=== PATIENT | female | born 1950 | race African-American/Black ===

== ENCOUNTER 2016-11-26 09:30 | Emergency (ER) | payer OTHER ==
[~2016-11-26] VITALS: Ht 175.3 cm; Wt 70.0 kg
[~2016-11-26 09:30] MED LIST: FEMA2.5T PO; LEXA20TA PO; PRIL20CA9 PO; VERA120T3 PO
[2016-11-26 09:32] VITALS: BP 140/64; PULSE 100; RESP 20; TEMP 98.5; O2SAT 100
--- NOTE | 2016-11-26 10:33 | PD ---
HPI Chief Complaint: Fall Time Seen by Provider: 10:04 Travel History International Travel<30 days: No Contact w/Intl Traveler<30days: No Traveled to known affect area: No History of Present Illness HPI Patient is a pleasant 66-year-old female here with complaint of fall. Patient had 4 glasses of wine yesterday had a mechanical fall, hitting her left temporal region. Patient was intoxicated at that time and is unsure whether she had an LOC or not. She however has not had any headache, nausea, vomiting in the interim. She did also hit the left groin region and notes a slight amount of pain there with hip flexion. No ecchymosis. Patient admits that she is an alcoholic. Is tearful, admitting that her 5 years ago and ever since she has been drinking heavily. 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 Admits she is been feeling the void of her with wine and drinks several glasses of wine every night. It is causing strain on her family relationships and her daughter is no longer speak to her. Patient admits that she is an alcoholic and has been going to a [employer] but has not been able to quit. She has not sought counseling for depression or grief reaction since losing her . PFSH Past Medical History Hx Anticoagulant Therapy: No Depression: Yes Cancer: Yes (BREAST) Cardiovascular Problems: Yes (HTN ) Chemotherapy: Yes Diabetes: No Diverticulitis: Yes Gastrointestinal Disorders: Yes (ABD PAIN,N'V) Glaucoma: No Genitourinary: Yes Hepatitis: No Hiatal Hernia: Yes Hypertension: Yes Immune Disorder: No Kidney Stones: Yes Musculoskeletal: No Neurologic: No Reproductive: No Respiratory: No Thyroid Disease: No ?: Not Menopausal: Yes : 2 Para: 2 Past Surgical History Abdominal Surgery: Yes (GASTRIC BYPASS WITH HIATAL HERNIA REPAIR, UMBILICAL HERNIA) Genitourinary Surgery: Yes (ESWL, LASER FOR KIDNEY STONES) Pacemaker: No Other Surgery: Yes (LEFT BREAST LUMPECTOMY) Social History Alcohol Use: Yes (daily- bottle of wine) Tobacco Use: No Substance Use: No Allergies-Medications (Allergen,Severity, Reaction): Coded Allergies: Penicillin (Verified Allergy, Severe, VOMITING AND DIARRHEA, 11/26/16) Sulfa (Verified Allergy, Severe, SEVERE SWELLING, 11/26/16) Erythromycin (Verified Allergy, Mild, 11/26/16) Morphine (Verified Adverse Reaction, Severe, nausea, 11/26/16) Uncoded Allergies: STUFFED MUSHROOMS (Allergy, Severe, Swelling, 06/30/10) Reported Meds & Prescriptions Reported Meds & Active Scripts Active Reported Prilosec (Omeprazole) 20 Mg Cap 20 Mg PO DAILY Verapamil (Verapamil HCl) 120 Mg Tab 120 Mg PO DAILY Femara (Letrozole) 2.5 Mg Tab 2.5 Mg PO DAILY Lexapro (Escitalopram Oxalate) 20 Mg Tab 20 Mg PO DAILY Review of Systems Except as stated in HPI: all other systems reviewed are Neg Physical Exam Narrative GENERAL: Well-appearing female in no acute distress SKIN: Focused skin assessment warm/dry. HEAD: Atraumatic. Normocephalic. EYES: Pupils equal and round. No scleral icterus. No injection or drainage. ENT: No nasal bleeding or discharge. Mucous membranes pink and moist. NECK: Supple CARDIOVASCULAR: Regular rate and rhythm. RESPIRATORY: No accessory muscle use. GASTROINTESTINAL: Abdomen soft, non-tender, nondistended. MUSCULOSKELETAL: No obvious deformities. No edema. Left groin without ecchymosis, swelling. Patient has minimal tenderness to palpation but is able to range the hip without any difficulty. Normal gait. NEUROLOGICAL: Awake and alert. No obvious cranial nerve deficits. Motor grossly within normal limits. Normal speech. PSYCHIATRIC: Blunted mood and affect, admits to feeling depressed and lonely particularly in the evenings. Denies any suicidal or homicidal ideation. Tearful when speaking about her late and her alcohol abuse. Data Data Last Documented VS Vital Signs Date Time Temp Pulse Resp B/P Pulse Ox O2 Delivery O2 Flow Rate FiO2 11/26/16 10:07 18 Room Air 11/26/16 09:32 98.5 100 140/[address] Brain W/O Iv Contrast(Rout) (11/26/16 ) MDM Medical Decision Making Medical Screen Exam Complete: Yes Emergency Medical Condition: Yes Medical Record Reviewed: Yes Differential Diagnosis 66-year-old female here with with fall with head injury with possible LOC yesterday evening while she was intoxicated. Differential includes closed head injury, intoxication and less likely skull fracture or ICH given her an intact neuro exam. Her underlying bigger issue is the fact that she by history has been depressed and quite lonely since her 5 years ago. She seems to be self-medicating with alcohol and has not sought any treatment for the underlying cause of her alcoholism. Narrative Course Had a very long conversation with patient and she actually has very good insight into her alcoholism and wants to get sober and mend her family relationships. She was given outpatient resources and I encouraged to have her follow up with primary for consideration of initiation of antidepressants. Head CT was obtained and negative. Diagnosis Primary Impression: Closed head injury Qualified Code: S09.90XA - Closed head injury, initial encounter Additional Impressions: Alcoholism Adjustment disorder Qualified Code: F43.21 - Adjustment disorder with depressed mood Referrals: Primary Care Physician as needed Additional Instructions: Follow up with outpatient resources as provided. Med/Other Pt SpecificInfo: No Change to Meds Disposition: 01 DISCHARGE HOME Condition: Stable Keli Anguiano MD Nov 26, 2016 10:33
--- NOTE | 2016-11-26 10:47 | RADRPT ---
EXAM DATE/TIME: 11/26/2016 10:25 [facility] COMPARISON: No previous studies available for comparison. INDICATIONS : Trauma; fall. RADIATION DOSE: 56.35 CTDIvol (mGy) IF STROKE ALERT - check box below MEDICAL HISTORY : Hypertension. Carcinoma, breast. SURGICAL HISTORY : None. ENCOUNTER: Initial ACUITY: 1 day PAIN SCALE: 3/10 LOCATION: cranial TECHNIQUE: Multiple contiguous axial images were obtained of the head. Using automated exposure control and adj ustment of the mA and/or kV according to patient size, radiation dose was kept as low as reasonably a chievable to obtain optimal diagnostic quality images. DICOM format image data is available electro nically for review and comparison. FINDINGS: CEREBRUM: The ventricles are normal for age. No evidence of midline shift, mass lesion, hemorrhage or acute in farction. No extra-axial fluid collections are seen. POSTERIOR FOSSA: The cerebellum and brainstem are intact. The 4th ventricle is midline. The cerebellopontine angle i s unremarkable. EXTRACRANIAL: The visualized portion of the orbits is intact. SKULL: The calvaria is intact. No evidence of skull fracture. CONCLUSION: Normal examination. Chandana Ford MD on November 26, 2016 at 10:43 Board Certified Radiologist. This report was verified electronically.
[2016-11-26] MEDS ORDERED: CANE/ALUMINUM/A1 MIS (10:54)
== END 2016-11-26 11:16 | disposition home or self-care (01) ==
LOC: NEPD 09:30
DX: S09.90XA Unspecified injury of head, initial encounter (principal); F10.20 Alcohol dependence, uncomplicated; F43.20 Adjustment disorder, unspecified; I10 Essential (primary) hypertension; W18.00XA Striking against unspecified object with subsequent fall, initial encounter; Z88.0 Allergy status to penicillin; Z88.2 Allergy status to sulfonamides; Z79.899 Other long term (current) drug therapy
CPT/HCPCS: 70450; 99284

== ENCOUNTER 2016-12-27 14:54 | Emergency (ER) | payer OTHER ==
[~2016-12-27] VITALS: Ht 180.3 cm; Wt 67.0 kg
[~2016-12-27 14:54] MED LIST changes: +CANE/ALUMINUM/A1 MIS
[2016-12-27 14:56] VITALS: BP 207/97; PULSE 72; RESP 18; TEMP 98.5; O2SAT 97
--- NOTE | 2016-12-27 15:12 | PD ---
Physical Exam Time Seen by Provider: 15:12 Narrative 66 y/o female with back pain which started a few weeks ago. It was improving but a few days ago she slid on a wet floor and fell, reinjuring her back. Vital signs reviewed. Seen at triage desk. Awaiting bed placement. Data Data Last Documented VS Vital Signs Date Time Temp Pulse Resp B/P Pulse Ox O2 Delivery O2 Flow Rate FiO2 12/27/16 14:56 98.5 72 18 207/97 97 Room Air [facility] Medical Record Reviewed: Yes Supervised Visit with OR: Philippe Bailey Dec 27, 2016 15:12
[2016-12-27 15:14] VITALS: BP 161/99; PULSE 79; RESP 16
[2016-12-27] MEDS ORDERED: METF850T PO (16:26)
[2016-12-27] MEDS ORDERED: ACETAMINOPHEN 325 MG TAB PO ONE (16:30)
[2016-12-27] MEDS ORDERED: METHOCARBAMOL 500 MG TAB PO ONE ×2 (16:30→19:00)
--- NOTE | 2016-12-27 16:30 | PD ---
HPI Chief Complaint: Back/ Neck Pain or Injury Time Seen by Provider: 16:29 Travel History International Travel<30 days: No Contact w/Intl Traveler<30days: No Traveled to known affect area: No History of Present Illness HPI 66-year-old female presents to the emergency Department with complaint of midline low back pain after slipping on a wet floor and falling on her buttocks on Saturday. She denies hitting her head or loss of consciousness. Denies encopresis, incontinence, saddle anesthesias. Denies paresthesias, loss of sensation, decreased range of motion, decreased strength to bilateral lower extremities. Denies fever, vomiting. Denies abdominal pain, dysuria, difficulty stooling, hematuria, hematochezia. Denies anticoagulants. Patient states she did go to work today and yesterday. Had a similar fall and injury about 3 weeks ago and did have a CT scan of her lumbar spine, which per the patient was normal but showed some arthritis. Her symptoms were improving and since have worsened since falling again. States she has been ambulatory with her cane. She's been taking Aleve and other [id number] medications for symptom management. Dr. Lin Colunga is primary care provider. Has no medical complaints. No other modifying factors or associated signs and symptoms. PFSH Past Medical History Hx Anticoagulant Therapy: No Depression: Yes Cancer: Yes (BREAST) Cardiovascular Problems: Yes (HTN ) Chemotherapy: Yes Diabetes: No Diminished Hearing: No Diverticulitis: Yes Gastrointestinal Disorders: Yes Glaucoma: No Genitourinary: Yes Hepatitis: No Hiatal Hernia: Yes Hypertension: Yes Immune Disorder: No Kidney Stones: Yes Musculoskeletal: No Neurologic: No Reproductive: No Respiratory: No Thyroid Disease: No Menopausal: Yes : 2 Para: 2 Past Surgical History Abdominal Surgery: Yes (GASTRIC BYPASS WITH HIATAL HERNIA REPAIR, UMBILICAL HERNIA) Genitourinary Surgery: Yes (ESWL, LASER FOR KIDNEY STONES) Pacemaker: No Other Surgery: Yes (LEFT BREAST LUMPECTOMY) Social History Alcohol Use: Yes (daily- bottle of wine) Tobacco Use: No Substance Use: No Allergies-Medications (Allergen,Severity, Reaction): Coded Allergies: Penicillin (Verified Allergy, Severe, VOMITING AND DIARRHEA, 12/27/16) Sulfa (Verified Allergy, Severe, SEVERE SWELLING, 12/27/16) Erythromycin (Verified Allergy, Mild, 12/27/16) Morphine (Verified Adverse Reaction, Severe, nausea, 12/27/16) Uncoded Allergies: STUFFED MUSHROOMS (Allergy, Severe, Swelling, 06/30/10) Reported Meds & Prescriptions Reported Meds & Active Scripts Active Naprosyn (Naproxen) 500 Mg Tab 500 Mg PO Q12HR PRN Lortab (Hydrocodone-Acetaminophen) 5-325 Mg Tab 1 Tab PO Q12HR PRN Reported Metformin (Metformin HCl) 850 Mg Tab 850 Mg PO DAILY With a meal Femara (Letrozole) 2.5 Mg Tab 2.5 Mg PO DAILY Lexapro (Escitalopram Oxalate) 20 Mg Tab 20 Mg PO DAILY Review of Systems Except as stated in HPI: all other systems reviewed are Neg Physical Exam Narrative GENERAL: Well-nourished, well-developed elderly, -Americans female patient, in no acute distress; afebrile, nontoxic-appearing SKIN: Warm and dry. HEAD: Atraumatic. Normocephalic. EYES: Pupils equal and round. No scleral icterus. No injection or drainage. ENT: Mucosa pink and moist. Airway patent. NECK: Trachea midline. Moving freely. Active rotation greater than 45 to the left and right. Tenderness on palpation to the bilateral musculature of the neck. CARDIOVASCULAR: Regular rate. RESPIRATORY: No accessory muscle use. GASTROINTESTINAL: Abdomen soft, non-tender, nondistended. Positive bowel sounds. No hepato-splenomegaly, or palpable masses. No guarding. MUSCULOSKELETAL: Bilateral lower extremities supple and non-tense with 2+ pedal pulses and sensory intact; with full range of motion and 5/5 strength. 2 + DTRs bilaterally. Active dorsiflexion and extension of bilateral feet. Bilateral straight leg raise is positive for low back pain. Sitting up in bed at 90. Patient ambulatory in room. No obvious deformities. No clubbing. No cyanosis. No edema. BACK: Midline point tenderness on palpation of the lumbar spine. No midline point tenderness on palpation of the thoracic or cervical spine. No obvious deformities. NEUROLOGICAL: Awake and alert. Oriented 3. No obvious cranial nerve deficits. Motor grossly within normal limits. Normal speech. Moves all extremities. 5/5 strength to all extremities. Sensory intact. PSYCHIATRIC: Appropriate mood and affect; insight and judgment normal. Data Data Last Documented VS Vital Signs Date Time Temp Pulse Resp B/P Pulse Ox O2 Delivery O2 Flow Rate FiO2 7/27/17 15:14 79 16 161/99 12/27/16 14:56 98[address] Lumb Spine W/O Contrast (12/27/16 ) Acetaminophen (Tylenol) (12/27/16 16:30) Methocarbamol (Robaxin) (12/27/16 16:30) Methocarbamol (Robaxin) (12/27/16 19:00) Splint Or Brace Apply/Monitor (12/27/16 19:45) Brace Lso-Orthosis (12/27/16 ) Brace Thoracic Ext (12/27/16 ) MDM Medical Decision Making Medical Screen Exam Complete: Yes Emergency Medical Condition: Yes Medical Record Reviewed: Yes Differential Diagnosis Fall, Lumbar fracture, low back injury, low back strain Narrative Course 66-year-old female with exacerbation of low back pain after a mechanical slip and fall on Saturday. Denies hitting her head or loss of consciousness. Patient says she had a similar fall and injury about 3 weeks ago and had a CT of her lumbar spine done outpatient, which per the patient showed no acute findings. Patient has midline point tenderness on palpation of the lumbar spine. CT lumbar spine ordered. Tylenol and Robaxin ordered. 1899: Report given at change of shift to Michael Cuevas PA-C. See his note for final patient disposition. Scripts Naproxen (Naprosyn)500 Mg [id number] Mg PO Q12HR PRN (PAIN SCALE 1 TO 10) #12 TAB Ref 0 Prov:Jason Malave MD 12/27/16 Hydrocodone-Acetaminophen (Lortab)5-325 Mg Tab1 Tab PO Q12HR PRN (PAIN GREATER THAN 7) #6 TAB Ref 0 Prov:Jason Malave MD 12/27/16 Sveta Chisholm Dec 27, 2016 16:30 Sveta Chisholm Dec 27, 2016 16:30
--- NOTE | 2016-12-27 19:35 | RADRPT ---
EXAM DATE/TIME: 12/27/2016 19:03 [facility] COMPARISON: No previous studies available for comparison. INDICATIONS : Trauma, slip and fall. RADIATION DOSE: 35.86 CTDIvol (mGy) MEDICAL HISTORY : Hypertension. Carcinoma, breast. SURGICAL HISTORY : None. ENCOUNTER: Initial ACUITY: 1 day PAIN SCALE: 10/10 LOCATION: Paraspinal TECHNIQUE: Volumetric scanning of the lumbar spine was performed. Multiplanar reconstructions in the sagittal, coronal and oblique axial planes were performed. Using automated exposure control and adjustment of the mA and/or kV according to patient size, radiation dose was kept as low as reasonably achievable t o obtain optimal diagnostic quality images. DICOM format image data is available electronically for review and comparison. FINDINGS: There is a moderate to severe compression deformity of L2 without significant retropulsion. The bones are diffusely osteopenic. There is a mild grade 1 anterolisthesis of L4 on L5. At L4-5 there is a mi ld central canal stenosis with a broad based mild protrusion. No other significant canal stenosis. CONCLUSION: 1. Moderate to severe severe compression deformity of L2 without significant retropulsion. Diffuse os teopenia. Mild canal stenosis at L4-5 associated with a grade 1 anterolisthesis and mild disc protrus ion. Kelvin Gottlieb MD on December 27, 2016 at 19:28 Board Certified Radiologist. This report was verified electronically.
--- NOTE | 2016-12-27 19:45 | PD ---
Physical Exam Narrative Patient signed out to me from Sveta DELACRUZ. Pending CT scan. Please see her documentation for full H&P. Data Data Last Documented VS Vital Signs Date Time Temp Pulse Resp B/P Pulse Ox O2 Delivery O2 Flow Rate FiO2 12/27/16 15:14 79 16 161/99 12/27/16 14:56 98[address] Lumb Spine W/O Contrast (12/27/16 ) Acetaminophen (Tylenol) (12/27/16 16:30) Methocarbamol (Robaxin) (12/27/16 16:30) Methocarbamol (Robaxin) (12/27/16 19:00) Splint Or Brace Apply/Monitor (12/27/16 19:45) Brace Lso-Orthosis (12/27/16 ) Brace Thoracic Ext (12/27/16 ) MDM Supervised Visit with RO: No Interpretation(s) CT lumbar spine read by the radiologist shows: Moderate to severe severe compression deformity of L2 without significant retropulsion. Diffuse osteopenia. Mild canal stenosis at L4-5 associated with a grade 1 anterolisthesis and mild disc protrusion. Narrative Course The patient presented complaining of back pain. There was history of preceding trauma. Evaluation included a CT scan that showed a moderate severe compression deformity of L2. TThe patients neurological exam is normal with normal motor and sensory. There is no saddle paresthesias reported and no bowel or bladder incontinence or retention. Clinical diagnosis, plan of care and management was discussed with the patient. The patient was instructed to follow up with their orthopedic doctor and/or neurosurgeon. The patient was also instructed to return if the pain worsened, changed, or developed weakness or bowel or bladder trouble. The patient agreed with plan. There was no evidence to support genitourinary etiology as well. There is also no evidence to suggest vascular pathology such as AAA dissection. No fevers or other evidence to suspect infectious processes, abscess etc. Patient in no obvious distress upon re-evaluation. All pertinent Radiology result(s) discussed with patient. Patient was asked if they wanted to speak to my attending, which the patient did not wish to do at this time. Any questions/ concerns in reference to patient diagnosis/condition discussed and clarified prior to patient's discharge. Reinforced sheer importance of close follow up with patient's orthopedic and/or neurosurgeon. Instructed patient to return to ED immediately, if symptoms return/worsen. Pt showed understanding of above instructions. Further instructions and recommendations were detailed in discharge paperwork. Pt ambulated without difficulty out of ED at discharge. Diagnosis Primary Impression: Compression fracture of lumbar vertebra Qualified Code: S32.000A - Compression fracture of lumbar vertebra, closed, initial encounter Referrals: Irineo Soares MD Neurosurgeon Patient Instructions: Clamshell Brace (ED), General Instructions, Lumbar Brace (GEN), Vertebral Compression Fracture (ED) Departure Forms: Work Release Enter return to work date: Dec 30, 2016 Additional Instruction: Follow-up with your orthopedic and/or neurosurgeon in 1-4 days for evaluation. Take all medication as prescribed. Wear brace as instructed while ambulatory until instructed by your orthopedic or neurosurgeon. Return to the emergency department if symptoms get worse. Scripts Naproxen (Naprosyn)500 Mg [id number] Mg PO Q12HR PRN (PAIN SCALE 1 TO 10) #12 TAB Ref 0 Prov:Jason Malave MD 12/27/16 Hydrocodone-Acetaminophen (Lortab)5-325 Mg Tab1 Tab PO Q12HR PRN (PAIN GREATER THAN 7) #6 TAB Ref 0 Prov:Jason Malave MD 12/27/16 Disposition: 01 DISCHARGE HOME Condition: Stable Norm Cuevas Dec 27, 2016 19:45
[2016-12-27] MEDS ORDERED: NAPR500 PO ×2 (19:52→19:53)
[2016-12-27] MEDS ORDERED: HYDR-3533 PO ×2 (19:52→19:53)
== END 2016-12-27 20:21 | disposition home or self-care (01) ==
LOC: NEPK 14:54
DX: S32.000A Wedge compression fracture of unspecified lumbar vertebra, initial encounter for closed fracture (principal); I10 Essential (primary) hypertension; F32.9 Major depressive disorder, single episode, unspecified; W01.0XXA Fall on same level from slipping, tripping and stumbling without subsequent striking against object, initial encounter; Z85.3 Personal history of malignant neoplasm of breast; Z79.899 Other long term (current) drug therapy; Z88.0 Allergy status to penicillin; Z88.2 Allergy status to sulfonamides; Z88.5 Allergy status to narcotic agent
CPT/HCPCS: 72131; 99284; L0200; L0484

== ENCOUNTER 2016-12-30 11:40 | Emergency (ER) | payer OTHER ==
[~2016-12-30 11:40] MED LIST changes: -CANE/ALUMINUM/A1 MIS; +HYDR-3533 PO; +METF850T PO; +NAPR500 PO; -PRIL20CA9 PO; -VERA120T3 PO
[2016-12-30 11:41] VITALS: BP 135/69; PULSE 80; RESP 20; TEMP 98.1; O2SAT 98
[2016-12-30] MEDS ORDERED: PERC5TAB12 PO (12:28)
--- NOTE | 2016-12-30 12:31 | PD ---
HPI Chief Complaint: Medical Clearance Time Seen by Provider: 12:15 Travel History International Travel<30 days: No Contact w/Intl Traveler<30days: No Traveled to known affect area: No History of Present Illness HPI 66-year-old female who sustained a mechanical fall resulting in L2 compression fracture without significant retropulsion on 12/27/16 presents to the emergency department today for clarification on how to wear her back brace. She also reports that her current pain medication is not working. She reports continued low back pain which is constant, worse with movement, slightly relieved with rest. Not endorse worsening pain. She denies incontinence, saddle anesthesia, numbness/weakness/tingling in the extremities. PFSH Past Medical History Hx Anticoagulant Therapy: No Depression: Yes Cancer: Yes (BREAST) Cardiovascular Problems: Yes (HTN ) Chemotherapy: Yes Diabetes: No Diminished Hearing: No Diverticulitis: Yes Gastrointestinal Disorders: Yes Glaucoma: No Genitourinary: Yes Hepatitis: No Hiatal Hernia: Yes Hypertension: Yes Immune Disorder: No Kidney Stones: Yes Musculoskeletal: No Neurologic: No Reproductive: No Respiratory: No Thyroid Disease: No Influenza Vaccination: Yes ?: Not Menopausal: Yes : 2 Para: 2 Past Surgical History Abdominal Surgery: Yes (GASTRIC BYPASS WITH HIATAL HERNIA REPAIR, UMBILICAL HERNIA) Genitourinary Surgery: Yes (ESWL, LASER FOR KIDNEY STONES) Pacemaker: No Other Surgery: Yes (LEFT BREAST LUMPECTOMY) Social History Alcohol Use: Yes (daily- bottle of wine) Tobacco Use: No Substance Use: No Allergies-Medications (Allergen,Severity, Reaction): Coded Allergies: Penicillin (Verified Allergy, Severe, VOMITING AND DIARRHEA, 12/30/16) Sulfa (Verified Allergy, Severe, SEVERE SWELLING, 12/30/16) Erythromycin (Verified Allergy, Mild, 12/30/16) Morphine (Verified Adverse Reaction, Severe, nausea, 12/30/16) Uncoded Allergies: STUFFED MUSHROOMS (Allergy, Severe, Swelling, 06/30/10) Reported Meds & Prescriptions Reported Meds & Active Scripts Active Naprosyn (Naproxen) 500 Mg Tab 500 Mg PO Q12HR PRN Lortab (Hydrocodone-Acetaminophen) 5-325 Mg Tab 1 Tab PO Q12HR PRN Reported Femara (Letrozole) 2.5 Mg Tab 2.5 Mg PO DAILY Lexapro (Escitalopram Oxalate) 20 Mg Tab 20 Mg PO DAILY Review of Systems Except as stated in HPI: all other systems reviewed are Neg General / Constitutional: No: Fever Eyes: No: Visual changes Cardiovascular: No: Chest Pain or Discomfort Respiratory: No: Shortness of Breath Gastrointestinal: No: Abdominal Pain Genitourinary: No: Dysuria Musculoskeletal: Positive: Pain (low back pain) Neurologic: No: Weakness Physical Exam Narrative GENERAL: Alert, well-appearing female in no acute distress. She appears mildly uncomfortable with moving. SKIN: Focused skin assessment warm/dry. HEAD: Atraumatic. Normocephalic. EYES: Pupils equal and round. No scleral icterus. No injection or drainage. ENT: No nasal bleeding or discharge. Mucous membranes pink and moist. NECK: Trachea midline. No JVD. CARDIOVASCULAR: Regular rate and rhythm. No murmur appreciated. RESPIRATORY: No accessory muscle use. Clear to auscultation. Breath sounds equal bilaterally. GASTROINTESTINAL: Abdomen soft, non-tender, nondistended. Hepatic and splenic margins not palpable. MUSCULOSKELETAL: No obvious deformities. No clubbing. No cyanosis. No edema. BACK: No CVA tenderness. No rash. Tender to palpation of the lumbar spine. NEUROLOGICAL: Awake and alert. No obvious cranial nerve deficits. Motor grossly within normal limits. Normal speech. 5 out of 5 strength in lower extremities. Normal sensation. PSYCHIATRIC: Appropriate mood and affect; insight and judgment normal. Data Data Last Documented VS Vital Signs Date Time Temp Pulse Resp B/P Pulse Ox O2 Delivery O2 Flow Rate FiO2 12/30/16 11:41 98.1 80 20 135/69 98 Room Air MDM Medical Decision Making Medical Screen Exam Complete: Yes Emergency Medical Condition: Yes Differential Diagnosis L2 compression fracture, spinal stenosis, intractable pain, other Narrative Course 66-year-old female presents emergency department for repeat education on how to properly where her back brace for her L2 compression fracture she sustained on 2716. Her physical exam is reassuring. She has a normal neurologic exam. She has point tenderness in the lumbar spine. She reports the hydrocodone is not improving her pain. Diagnosis Primary Impression: Compression fracture of lumbar vertebra Qualified Code: S32.000A - Compression fracture of lumbar vertebra, closed, initial encounter Referrals: Primary Care Physician Additional Instructions: Take the pain medication as prescribed. Where the back brace as instructed. Follow up with your primary care doctor. Return to emergency department if he developed new or worsening symptoms. Scripts Oxycodone-Acetaminophen (Percocet)5-325 mg Tab1 Tab PO Q6H PRN (PAIN) #15 TAB Ref 0 Prov:Lakeshia Mabry 12/30/16 Disposition: 01 DISCHARGE HOME Condition: Stable Lakeshia Mabry Dec 30, 2016 12:31
== END 2016-12-30 13:20 | disposition home or self-care (01) ==
LOC: NEPD 11:40
DX: S32.020A Wedge compression fracture of second lumbar vertebra, initial encounter for closed fracture (principal); W19.XXXA Unspecified fall, initial encounter
CPT/HCPCS: 99283

== ENCOUNTER 2017-03-15 09:32 | Emergency (ER) | payer OTHER ==
[~2017-03-15] VITALS: Ht 177.8 cm; Wt 65.0 kg
[~2017-03-15 09:32] MED LIST changes: -METF850T PO; +PERC5TAB12 PO
[2017-03-15 09:34] VITALS: BP 132/76; PULSE 88; RESP 12; TEMP 98.2; O2SAT 100
[2017-03-15] MEDS ORDERED: NAPROXEN 500 MG TAB PO ONE (10:00)
--- NOTE | 2017-03-15 10:05 | PD ---
HPI Chief Complaint: Injury Time Seen by Provider: 09:57 Travel History International Travel<30 days: No Contact w/Intl Traveler<30days: No Traveled to known affect area: No History of Present Illness HPI 67-year-old female presents to the emergency department complaining of left shoulder pain after a fall today. She is [employer] employee and she was saying hello to a friend and pushed the button to the elevator and fell. Reports falling 2 weeks ago also. She says she can feel herself falling but doesn't know why she is falling. Denies syncope. Denies hitting her head or loss of consciousness. Denies neck pain or back pain. Denies anticoagulant therapy. Denies chest pain, shortness of breath, abdominal pain, vomiting. Denies lightheadedness, dizziness, headache. Denies focal deficits or weakness. Describes shoulder pain as an ache. Has not taken any medications or tried any treatments to relieve her symptoms. Pain is mild in severity. Says she recently stopped taking her blood pressure medication because it was making her feel nauseated. Multiple allergies as listed on the chart. Has no other medical complaints. No other modifying factors or associated signs and symptoms. PFSH Past Medical History Hx Anticoagulant Therapy: No Depression: Yes Cancer: Yes (BREAST) Cardiovascular Problems: Yes (HTN ) Chemotherapy: Yes Diabetes: No Diminished Hearing: No Diverticulitis: Yes Gastrointestinal Disorders: Yes Glaucoma: No Genitourinary: Yes Hepatitis: No Hiatal Hernia: Yes Hypertension: Yes Immune Disorder: No Kidney Stones: Yes Musculoskeletal: No Neurologic: No Reproductive: No Respiratory: No Thyroid Disease: No ?: Not Menopausal: Yes : 2 Para: 2 Past Surgical History Abdominal Surgery: Yes (GASTRIC BYPASS WITH HIATAL HERNIA REPAIR, UMBILICAL HERNIA) Genitourinary Surgery: Yes (ESWL, LASER FOR KIDNEY STONES) Pacemaker: No Other Surgery: Yes (LEFT BREAST LUMPECTOMY) Social History Alcohol Use: Yes (daily- bottle of wine) Tobacco Use: No Substance Use: No Allergies-Medications (Allergen,Severity, Reaction): Coded Allergies: Sulfa (Sulfonamide Antibiotics) (Unverified Allergy, Severe, SEVERE SWELLING, 01/15/17) penicillin G (Unverified Allergy, Severe, VOMITING AND DIARRHEA, 01/15/17) erythromycin base (Unverified Allergy, Mild, 01/15/17) morphine (Unverified Adverse Reaction, Severe, nausea, 01/15/17) Uncoded Allergies: STUFFED MUSHROOMS (Allergy, Severe, Swelling, 06/30/10) Reported Meds & Prescriptions Reported Meds & Active Scripts Active Percocet (Oxycodone-Acetaminophen) 5-325 mg Tab 1 Tab PO Q6H PRN Naprosyn (Naproxen) 500 Mg Tab 500 Mg PO Q12HR PRN Lortab (Hydrocodone-Acetaminophen) 5-325 Mg Tab 1 Tab PO Q12HR PRN Reported Femara (Letrozole) 2.5 Mg Tab 2.5 Mg PO DAILY Lexapro (Escitalopram Oxalate) 20 Mg Tab 20 Mg PO DAILY Review of Systems Except as stated in HPI: all other systems reviewed are Neg Physical Exam Narrative GENERAL: Well-nourished, well-developed elderly, black female patient, in no acute distress SKIN: Warm and dry. HEAD: Atraumatic. Normocephalic. EYES: Pupils equal and round. No scleral icterus. No injection or drainage. ENT: Mucosa pink and moist. Airway patent. NECK: Supple. Trachea midline. CARDIOVASCULAR: Regular rate and rhythm. No murmur appreciated. RESPIRATORY: No accessory muscle use. Clear to auscultation. Breath sounds equal bilaterally. GASTROINTESTINAL: Flat. MUSCULOSKELETAL: Left shoulder with full range of motion and greater than 45 abduction; no obvious deformity; shoulders equal; joint stable. No obvious deformities. No clubbing. No cyanosis. No edema. NEUROLOGICAL: Awake and alert. Oriented 3. No obvious cranial nerve deficits. Motor grossly within normal limits. Normal speech. PSYCHIATRIC: Appropriate mood and affect; insight and judgment normal. Data Data Last Documented VS Vital Signs Date Time Temp Pulse Resp B/P (MAP) Pulse Ox O2 Delivery O2 Flow Rate FiO2 03/15/17 09:34 98.2 88 12 132/76 (94) 100 Orders Orders Electrocardiogram (03/15/17 09:51) Basic Metabolic Panel (Bmp) (03/15/17 09:51) Complete Blood Count With Diff (03/15/17 09:51) Shoulder, Complete (>2vws) (03/15/17 09:51) Naproxen (Naprosyn) (03/15/17 10:00) [facility] Medical Decision Making Medical Screen Exam Complete: Yes Emergency Medical Condition: Yes Medical Record Reviewed: Yes Differential Diagnosis Fall, near syncope, shoulder injury, electrolyte imbalance, cardiac arrhythmia Narrative Course 67-year-old female with left shoulder injury after fall. Patient had a fall 2 weeks ago. She does not know why she is falling. Denies syncope. Patient denies hitting her head or loss of consciousness. Denies neck pain or back pain. Denies anticoagulant therapy. CBC, BMP, EKG, left shoulder x-ray ordered. 0955: Patient moved medical bed for further treatment and evaluation. Report given to Dr. Benavides. See his note for patient final disposition. Sveta Chisholm Mar 15, 2017 10:05
--- NOTE | 2017-03-15 10:31 | RADRPT ---
EXAM DATE/TIME: 03/15/2017 10:21 [facility] COMPARISON: No previous studies available for comparison. INDICATIONS : Fell on left shoulder pain with motion over AC joint radiating into left scapula. MEDICAL HISTORY : None. SURGICAL HISTORY : None. ENCOUNTER: Initial ACUITY: 1 day PAIN SCORE: 9/10 LOCATION: Left shoulder FINDINGS: Degenerative changes of evident with chronic rotator cuff tear. There is no fracture. CONCLUSION: Chronic rotator cuff tear, negative for fracture. Fransisco Goldsmith MD FACR on March 15, 2017 at 10:29 Board Certified Radiologist. This report was verified electronically.
[2017-03-15] MEDS ORDERED: OMEP40CA2 PO (10:35)
[2017-03-15 10:44] LABS: BASOPHIL # 0.1 TH/MM3 (0-0.2); BASOPHIL % 1.6 % (0.0-2.0); EOSINOPHIL # 0.2 TH/MM3 (0-0.4); EOSINOPHIL % 5.8 % (0.0-4.0); HEMATOCRIT 32.4 % (35.0-46.0); HEMO FLAGS DIFF FINAL; LYMPH % 29.1 % (9.0-44.0); LYMPHOCYTE # 1.1 TH/MM3 (1.0-4.8); MEAN CELL VOLUME 101.2 FL (80.0-100.0); MEAN CORPUSCULAR HEMOGLOBIN 33.4 PG (27.0-34.0); MEAN CORPUSCULAR HGB CONC 33.1 % (32.0-36.0); NEUT % 53.5 % (16.0-70.0); PLATELET COUNT 276 TH/MM3 (150-450); RED CELL DISTRIBUTION WIDTH 13.7 % (11.6-17.2); WHITE BLOOD COUNT 3.7 TH/MM3 (4.0-11.0)
[2017-03-15 11:06] LABS: BICARBONATE 21.7 MEQ/L (21.0-32.0); POTASSIUM 3.9 MEQ/L (3.5-5.1)
--- NOTE | 2017-03-15 11:52 | PD ---
Data Data Last Documented VS Vital Signs Date Time Temp Pulse Resp B/P (MAP) Pulse Ox O2 Delivery O2 Flow Rate FiO2 03/15/17 10:14 Room Air 03/15/17 09:34 98.2 88 12 132/76 (94) 100 Orders Orders Electrocardiogram (03/15/17 09:51) Basic Metabolic Panel (Bmp) (03/15/17 09:51) Complete Blood Count With Diff (03/15/17 09:51) Shoulder, Complete (>2vws) (03/15/17 09:51) Naproxen (Naprosyn) (03/15/17 10:00) Labs Laboratory Tests Test 03/15/17 10:25 White Blood Count 3.7 TH/MM3 Red Blood Count 3.20 MIL/MM3 Hemoglobin 10.7 GM/DL Hematocrit 32.4 % Mean Corpuscular Volume 101.2 FL Mean Corpuscular Hemoglobin 33.4 PG Mean Corpuscular Hemoglobin Concent 33.1 % Red Cell Distribution Width 13.7 % Platelet Count 276 TH/MM3 Mean Platelet Volume 6.6 FL Neutrophils (%) (Auto) 53.5 % Lymphocytes (%) (Auto) 29.1 % Monocytes (%) (Auto) 10.0 % Eosinophils (%) (Auto) 5.8 % Basophils (%) (Auto) 1.6 % Neutrophils # (Auto) 2.0 TH/MM3 Lymphocytes # (Auto) 1.1 TH/MM3 Monocytes # (Auto) 0.4 TH/MM3 Eosinophils # (Auto) 0.2 TH/MM3 Basophils # (Auto) 0.1 TH/MM3 CBC Comment DIFF FINAL Differential Comment Blood Urea Nitrogen 12 MG/DL Creatinine 0.72 MG/DL Random Glucose 59 MG/DL Calcium Level 8.8 MG/DL Sodium Level 135 MEQ/L Potassium Level 3.9 MEQ/L Chloride Level 104 MEQ/L Carbon Dioxide Level 21.7 MEQ/L Anion Gap 9 MEQ/L Estimat Glomerular Filtration Rate 97 ML/MIN [facility] Supervised Visit with RO: Yes Narrative Course Patient with unexplained fall today at work. Landed On her left shoulder. Labs are unremarkable, x-rays negative, EKG is unremarkable. Medical decision making: Patient likely needs follow-up for these to fall episodes that she's had. She describes a little bit of unsteadiness generally. She looks well now. No evidence of injury from fall. She otherwise is well. Safe for discharge. Diagnosis Primary Impression: Unsteady gait Additional Instruction: Follow-up with your primary doctor regarding her unsteady gait. Return to the emergency department for any new or worsening symptoms. Med/Other Pt SpecificInfo: No Change to Meds Disposition: 01 DISCHARGE HOME Condition: Stable Charlie Benavides MD Mar 15, 2017 11:52
[2017-03-15 12:02] VITALS: BP 129/77
--- NOTE | 2017-03-15 14:13 | EKG ---
Date Performed: 03/15/2017 Time Performed: 10:29:30 PTAGE: 67 years EKG: Sinus rhythm NORMAL ECG PREVIOUS TRACING : 06/30/2010 08.05 No change from previous tracing noted DOCTOR: Carlos Dillon Interpretating Date/Time 03/15/2017 14:12:12
== END 2017-03-15 12:04 | disposition home or self-care (01) ==
LOC: NEPD 09:32
DX: R26.81 Unsteadiness on feet (principal); M25.512 Pain in left shoulder; F32.9 Major depressive disorder, single episode, unspecified; I10 Essential (primary) hypertension; Z88.0 Allergy status to penicillin; Z88.2 Allergy status to sulfonamides; Z88.5 Allergy status to narcotic agent; Z79.899 Other long term (current) drug therapy; W18.30XA Fall on same level, unspecified, initial encounter; Z91.81 History of falling; Z85.3 Personal history of malignant neoplasm of breast; Z87.442 Personal history of urinary calculi
CPT/HCPCS: 73030; 80048; 85025; 93005

== ENCOUNTER 2017-03-21 13:08 | Emergency (ER) | payer OTHER ==
[~2017-03-21] VITALS: Ht 180.3 cm; Wt 65.0 kg
[~2017-03-21 13:08] MED LIST changes: -HYDR-3533 PO; -NAPR500 PO; +OMEP40CA2 PO; -PERC5TAB12 PO
[2017-03-21 13:12] VITALS: BP 171/84; PULSE 97; RESP 18; TEMP 98.4; O2SAT 100
[2017-03-21 14:30] VITALS: BP 137/84; PULSE 86; RESP 15; O2SAT 100
--- NOTE | 2017-03-21 14:42 | PD ---
HPI Chief Complaint: Fall Time Seen by Provider: 14:13 Travel History International Travel<30 days: No Contact w/Intl Traveler<30days: No Traveled to known affect area: No History of Present Illness HPI 67-year-old female presents to the emergency department for evaluation after a trip and fall. Patient was just seen here recently for unsteady gait, falls. Lab work was completed and she was instructed to follow up with her primary care physician. She has done this and has order for MRI of the brain. She states that today, she was hurrying with food in her hands. She is wearing new sneakers which tripped her up and she fell hitting her head. Says insist she tripped and fell. She denies LOC, but complains of headache. She denies any neck pain or back pain. No chest pain or abdominal pain. She also complains of right facial pain. She denies any hip or pelvic pain. No nausea, vomiting, diarrhea. Patient is not currently on anticoagulants. Patient denies any other complaints at this time. PFSH Past Medical History Hx Anticoagulant Therapy: No Depression: Yes Cancer: Yes (BREAST) Cardiovascular Problems: Yes (HTN ) Chemotherapy: Yes Diabetes: No Diminished Hearing: No Diverticulitis: Yes Gastrointestinal Disorders: Yes Glaucoma: No Genitourinary: Yes Hepatitis: No Hiatal Hernia: Yes Hypertension: Yes Immune Disorder: No Kidney Stones: Yes Musculoskeletal: No Neurologic: No Reproductive: No Respiratory: No Thyroid Disease: No Tetanus Vaccination: Unknown Influenza Vaccination: Yes ?: Not Menopausal: Yes : 2 Para: 2 Past Surgical History Abdominal Surgery: Yes (GASTRIC BYPASS WITH HIATAL HERNIA REPAIR, UMBILICAL HERNIA) Genitourinary Surgery: Yes (ESWL, LASER FOR KIDNEY STONES) Pacemaker: No Other Surgery: Yes (LEFT BREAST LUMPECTOMY) Social History Alcohol Use: Yes (daily- bottle of wine) Tobacco Use: No Substance Use: No Allergies-Medications (Allergen,Severity, Reaction): Coded Allergies: Sulfa (Sulfonamide Antibiotics) (Verified Allergy, Severe, SEVERE SWELLING , 03/21/17) penicillin G (Verified Allergy, Severe, VOMITING AND DIARRHEA, 03/21/17) erythromycin base (Verified Allergy, Mild, 03/21/17) morphine (Verified Adverse Reaction, Severe, nausea, 03/21/17) Uncoded Allergies: STUFFED MUSHROOMS (Allergy, Severe, Swelling, 06/30/10) Reported Meds & Prescriptions Reported Meds & Active Scripts Active Reported Omeprazole 40 Mg Cap 40 Mg PO DAILY Femara (Letrozole) 2.5 Mg Tab 2.5 Mg PO DAILY Lexapro (Escitalopram Oxalate) 20 Mg Tab 20 Mg PO DAILY Review of Systems Except as stated in HPI: all other systems reviewed are Neg Physical Exam Narrative GENERAL: Well-nourished, well-developed female patient, afebrile. SKIN: Focused skin assessment warm/dry. No lacerations or abrasions. HEAD: Normocephalic. Atraumatic. Patient has tenderness over right cheek, eye orbit. EYES: No scleral icterus. No injection or drainage. PERRLA. EOM intact. NECK: Supple, trachea midline. No JVD or lymphadenopathy. CARDIOVASCULAR: Regular rate and rhythm without murmurs, gallops, or rubs. RESPIRATORY: Breath sounds equal bilaterally. No accessory muscle use. Lungs sounds are clear to auscultation. GASTROINTESTINAL: Abdomen soft, non-tender, nondistended. MUSCULOSKELETAL: No cyanosis, or edema. Bilateral upper and lower extremity strength 5/5. All extremities are neurovascularly intact. BACK: Nontender without obvious deformity. No CVA tenderness. Data Data Last Documented VS Vital Signs Date Time Temp Pulse Resp B/P (MAP) Pulse Ox O2 Delivery O2 Flow Rate FiO2 03/21/17 14:30 16 100 Room Air 03/21/17 14:30 86 137/84 (101) 03/21/17 13:[address] Brain W/O Iv Contrast(Rout) (03/21/17 ) Ct Facial Bones W/O Iv Cont (03/21/17 ) MDM Medical Decision Making Medical Screen Exam Complete: Yes Emergency Medical Condition: Yes Medical Record Reviewed: Yes Interpretation(s) Last Impressions Maxillofacial CT 03/21/17 0000 Signed Impressions: Service Date/Time: , March 21, 2017 15:02 - CONCLUSION: Normal examination for a patient of this age. Asher Phillips MD Head CT 03/21/17 0000 Signed Impressions: Service Date/Time: , March 21, 2017 15:02 - CONCLUSION: Stable noncontrast head CT. No acute intracranial abnormality is identified. Chandana Jiang MD Differential Diagnosis Closed head injury versus intracranial abnormality versus contusion versus fracture Narrative Course 67-year-old female presents to the emergency department for evaluation after a trip and fall. Ct of the brain and Ct of the cervical spine show no acute abnormality. Patient is stable for discharge home. She is to follow up with her primary care provider. She verbalizes agreement and understanding. Diagnosis Primary Impression: Closed head injury Qualified Codes: S09.90XA - Unspecified injury of head, initial encounter Additional Impression: Facial contusion Qualified Codes: S00.83XA - Contusion of other part of head, initial encounter Referrals: Primary Care Physician call for appointment Patient Instructions: General Instructions, Head Injury (ED) Additional Instructions: Over the counter Tylenol/Ibuprofen as directed as needed for pain. Follow up with your primary care physician. Return to the emergency department for any acute, worsening of symptoms. Med/Other Pt SpecificInfo: No Change to Meds Disposition: 01 DISCHARGE HOME Condition: Stable Feli Tolbert Mar 21, 2017 14:42
--- NOTE | 2017-03-21 15:21 | RADRPT ---
EXAM DATE/TIME: 03/21/2017 15:02 [facility] COMPARISON: CT BRAIN W/O CONTRAST, November 26, 2016, 10:25. INDICATIONS : Fall and hit face. RADIATION DOSE: 34.23 CTDIvol (mGy) MEDICAL HISTORY : Hypertension. Carcinoma, breast. SURGICAL HISTORY : None. ENCOUNTER: Initial ACUITY: 1 day PAIN SCALE: 3/10 LOCATION: Bilateral distal TECHNIQUE: Multiple contiguous axial images were obtained of the head. Using automated exposure control and adj ustment of the mA and/or kV according to patient size, radiation dose was kept as low as reasonably a chievable to obtain optimal diagnostic quality images. DICOM format image data is available electro nically for review and comparison. FINDINGS: CEREBRUM: The ventricles are normal. There is stable calcification of the anterior falx cerebri. No evidence o f midline shift, mass lesion, hemorrhage or acute infarction. No extra-axial fluid collections are s een. POSTERIOR FOSSA: The cerebellum and brainstem emonstrate no acute finding. The 4th ventricle is midline. The cerebel lopontine angle is unremarkable. EXTRACRANIAL: The visualized sinuses are clear. SKULL: The calvaria is intact. No evidence of skull fracture. CONCLUSION: Stable noncontrast head CT. No acute intracranial abnormality is identified. Chandana Jiang MD on March 21, 2017 at 15:17 Board Certified Radiologist. This report was verified electronically.
--- NOTE | 2017-03-21 15:37 | RADRPT ---
EXAM DATE/TIME: 03/21/2017 15:02 [facility] COMPARISON: No previous studies available for comparison. INDICATIONS : Fall and hit face. RADIATION DOSE: 56.81 CTDIvol (mGy) MEDICAL HISTORY : Hypertension. Carcinoma, breast. SURGICAL HISTORY : None. ENCOUNTER: Initial ACUITY: 1 day PAIN SCORE: 4/10 LOCATION: Bilateral facial TECHNIQUE: Volumetric scanning of the facial bones was performed. Using automated exposure control and adjustme nt of the mA and/or kV according to patient size, radiation dose was kept as low as reasonably achiev able to obtain optimal diagnostic quality images. DICOM format image data is available electronicKapta y for review and comparison. FINDINGS: ORBITS: The orbital and infraorbital osseous structures are intact. The retroconal structures have a normal configuration. No radiopaque foreign bodies are seen. NASAL BONE: The nasal bone and maxillary spine are intact ZYGOMATIC ARCHES: Symmetric without evidence of fracture. SINUSES: The maxillary, ethmoid and frontal sinuses are intact. No air-fluid levels seen. NASAL CAVITY: The nasal septum is intact and midline. The lacrimal ducts are intact. SOFT TISSUES: No radiopaque foreign bodies seen. No soft-tissue swelling is seen. INTRACRANIAL: No intracranial air seen. CRIBIFORM PLATE: Grossly intact. CONCLUSION: Normal examination for a patient of this age. Asher Phillips MD on March 21, 2017 at 15:34 Board Certified Radiologist. This report was verified electronically.
[2017-03-21 16:29] VITALS: BP 157/81
[2017-03-21] MEDS ORDERED: ACETAMINOPHEN 325 MG TAB PO ONE (16:45)
== END 2017-03-21 16:47 | disposition home or self-care (01) ==
LOC: NEPE 13:08
DX: S00.83XA Contusion of other part of head, initial encounter (principal); W01.0XXA Fall on same level from slipping, tripping and stumbling without subsequent striking against object, initial encounter
CPT/HCPCS: 70450; 70486; 99285

== ENCOUNTER 2017-04-15 09:03 | Emergency (ER) | payer OTHER ==
[~2017-04-15] VITALS: Ht 167.6 cm; Wt 70.0 kg
[2017-04-15 09:05] VITALS: BP 146/76; PULSE 82; RESP 18; TEMP 98.2; O2SAT 98
[2017-04-15] MEDS ORDERED: VITA500S3 SL (09:26)
[2017-04-15] MEDS ORDERED: VITA100021 SL (09:26)
[2017-04-15] MEDS ORDERED: [UNRECOGNIZED DRUG - REMARK] (09:26)
[2017-04-15] MEDS ORDERED: FOLI400T PO (09:26)
--- NOTE | 2017-04-15 10:16 | RADRPT ---
EXAM DATE/TIME: 04/15/2017 09:51 [facility] COMPARISON: No previous studies available for comparison. INDICATIONS : Fell today, entire left hand is painful and swollen, especially the 4th digit MEDICAL HISTORY : None. SURGICAL HISTORY : None. ENCOUNTER: Initial ACUITY: 1 day PAIN SCORE: 10/10 LOCATION: Left hand FINDINGS: There are fractures of the proximal pharynx of the fourth finger, distal fourth metatarsal carpal and distal fifth metacarpal. Carpus is intact. CONCLUSION: Fractures as above. Fransisco Goldsmith MD FACR on April 15, 2017 at 10:14 Board Certified Radiologist. This report was verified electronically.
--- NOTE | 2017-04-15 10:21 | PD ---
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 during this her left ring finger got the majority of the weight landing on it. painful to move, 8/10, sharp, worse with moving, PFSH Past Medical History Hx Anticoagulant Therapy: No Depression: Yes Cancer: Yes (BREAST) Cardiovascular Problems: Yes (HTN) Chemotherapy: Yes Diabetes: No Diminished Hearing: No Diverticulitis: Yes Gastrointestinal Disorders: Yes Glaucoma: No Genitourinary: Yes Hepatitis: No Hiatal Hernia: Yes Hypertension: Yes Immune Disorder: No Kidney Stones: Yes Musculoskeletal: No Neurologic: No Reproductive: No Respiratory: No Thyroid Disease: No ?: Not Menopausal: Yes : 2 Para: 2 Past Surgical History Abdominal Surgery: Yes (GASTRIC BYPASS WITH HIATAL HERNIA REPAIR, UMBILICAL HERNIA) Genitourinary Surgery: Yes (ESWL, LASER FOR KIDNEY STONES) Pacemaker: No Other Surgery: Yes (LEFT BREAST LUMPECTOMY) Social History Alcohol Use: No Tobacco Use: Yes (cigars) Substance Use: No Allergies-Medications (Allergen,Severity, Reaction): Coded Allergies: Sulfa (Sulfonamide Antibiotics) (Verified Allergy, Severe, SEVERE SWELLING , 04/16/17) penicillin G (Verified Allergy, Severe, VOMITING AND DIARRHEA, 04/16/17) erythromycin base (Verified Allergy, Mild, 04/16/17) morphine (Verified Adverse Reaction, Severe, nausea, 04/16/17) Uncoded Allergies: STUFFED MUSHROOMS (Allergy, Severe, Swelling, 06/30/10) Reported Meds & Prescriptions Reported Meds & Active Scripts Active Senokot (Sennosides) 8.6 Mg Tab 8.6 Mg PO DAILY Hydrocodone-Acetaminophen 5-325 mg Tab 1 Tab PO Q4H PRN Reported Vitamin B-12 (Cyanocobalamin) 500 Mcg Subl 500 Mcg SL DAILY Vitamin B-12 (Cyanocobalamin) 1,000 Mcg Subl 2,500 Mcg SL DAILY [unk bp ] DAILY Folic Acid 0.4 Mg Tab Unknown Dose PO DAILY Femara (Letrozole) 2.5 Mg Tab 2.5 Mg PO DAILY Lexapro (Escitalopram Oxalate) 20 Mg Tab 20 Mg PO DAILY Review of Systems Except as stated in HPI: all other systems reviewed are Neg General / Constitutional: No: Fever Eyes: No: Visual changes HENT: No: Headaches Cardiovascular: No: Chest Pain or Discomfort Respiratory: No: Shortness of Breath Gastrointestinal: No: Abdominal Pain Genitourinary: No: Dysuria Musculoskeletal: Positive: Pain (left ring finger) Skin: No Rash Neurologic: No: Weakness Psychiatric: No: Depression Endocrine: No: Polydipsia Hematologic/Lymphatic: No: Easy Bruising Physical Exam Narrative GENERAL: SKIN: Warm and dry. HEAD: Atraumatic. Normocephalic. EYES: Pupils equal and round. No scleral icterus. No injection or drainage. ENT: No nasal bleeding or discharge. Mucous membranes pink and moist. NECK: Trachea midline. No JVD. CARDIOVASCULAR: Regular rate and rhythm. RESPIRATORY: No accessory muscle use. Clear to auscultation. Breath sounds equal bilaterally. GASTROINTESTINAL: Abdomen soft, non-tender, nondistended. MUSCULOSKELETAL: Extremities without clubbing, cyanosis, or edema. some mild deformity over left 4th prox phalanx and mcp NEUROLOGICAL: Awake and alert. No obvious cranial nerve deficits. Motor grossly within normal limits. Five out of 5 muscle strength in the arms and legs. Normal speech. PSYCHIATRIC: Appropriate mood and affect; insight and judgment normal. Data Data Last Documented VS Vital Signs Date Time Temp Pulse Resp B/P (MAP) Pulse Ox O2 Delivery O2 Flow Rate FiO2 04/15/17 12:10 04/15/17 09:05 98.2 82 18 98 Orders Orders Hand, Complete ([id number]) (04/15/17 ) Support Splint (04/15/17 10:22) Ed Discharge Order (04/15/17 11:20) Fiberglass Splint Forearm Adul (04/15/17 ) [facility] Medical Decision Making Medical Screen Exam Complete: Yes Emergency Medical Condition: Yes Medical Record Reviewed: Yes Differential Diagnosis fx v dislocation v subluxation v contusion Narrative Course xray showed comminuted prox phalanx 4th with deviation....xray also got fx at 4th & 5th mcp Procedures Procedure Narrative left 4th digital block (area cleaned in normal sterile fashion, then digital block with lido 1%) left 4th digit fx/dislocation: traction placed and lucas taped to 3rd and 5th digit. Diagnosis Primary Impression: 4th proximal phalanx comminuted fx Additional Impression: 4th and 5th mcp fx Referrals: Jeff Deluca III, MD for further care of your broken ring finger Scripts Sennosides (Senokot) 8.6 Mg Tab 8.6 MG PO DAILY for Constipation, #20 TAB 0 Refills Prov: Jayro Valdivia MD 04/15/17 Hydrocodone-Acetaminophen (Hydrocodone-Acetaminophen) 5-325 mg Tab 1 TAB PO Q4H Y for PAIN, #20 TAB 0 Refills Prov: Jayro Valdivia MD 04/15/17 Disposition: 01 DISCHARGE HOME Condition: Stable Jayro Valdivia MD Apr 15, 2017 10:21
[2017-04-15] MEDS ORDERED: HYDR-3516 PO (10:45)
[2017-04-15] MEDS ORDERED: SENO8.6T5 PO (10:45)
== END 2017-04-15 12:11 | disposition home or self-care (01) ==
LOC: NEPD 09:03
DX: S62.615A Displaced fracture of proximal phalanx of left ring finger, initial encounter for closed fracture (principal); S62.305A Unspecified fracture of fourth metacarpal bone, left hand, initial encounter for closed fracture; S62.307A Unspecified fracture of fifth metacarpal bone, left hand, initial encounter for closed fracture; I10 Essential (primary) hypertension; W01.0XXA Fall on same level from slipping, tripping and stumbling without subsequent striking against object, initial encounter; Y93.F9 Activity, other caregiving; Y92.239 Unspecified place in hospital as the place of occurrence of the external cause; Y99.0 Civilian activity done for income or pay
CPT/HCPCS: 29125; 64450; 73130

== ENCOUNTER → 2017-05-09 | Day surgery (SDC) | payer OTHER ==
[~2017-05-09] VITALS: Ht 175.3 cm; Wt 71.0 kg
[~2017-05-09] MED LIST changes: +ACET25TA4 PO; +ACETAMINOPHEN/HYDROcodone 325 MG/5 MG TAB ONE; +BUPIVACAINE HCL PF 0.5% 30 ML VIAL ONE; +CHLORHEXIDINE GLUCONATE 2 % 1 PACK (2 CLOTHS) TOPICAL PRN; +CIPR250T52 PO; +CIPROFLOXACIN/DEXT 400 MG/200 ML IV PRN; +FOLI400T PO; +HYDR-3288 PO; +HYDR-3516 PO; +INSULIN HUMAN REGULAR 1,000 UNITS/10 ML VIAL SQ PRN; +LACTATED RINGER'S 1000 ML IV PRN; +LIDOCAINE HCL 2% 50 ML VIAL ONE; +MAPA500T13 PO; +METOPROLOL TARTRATE 25 MG TAB PO PRN; +NEOMYCIN/POLYMYXIN 1 ML G.U. IRRIGANT ONE; -OMEP40CA2 PO; +POVIDONE IODINE 5% (ANTISEPSIS KIT) 4 APPLICATIONS EACH NARE PRN; +SENO8.6T5 PO; +SODIUM CHLORID 0.9% 500 ML IV PRN; +VITA100021 SL; +VITA500S3 SL; +[UNRECOGNIZED DRUG - REMARK]
[2017-05-09 07:22] LABS: HEMATOCRIT 28.9 % (35.0-46.0); MEAN CELL VOLUME 96.4 FL (80.0-100.0); MEAN CORPUSCULAR HEMOGLOBIN 30.9 PG (27.0-34.0); MEAN CORPUSCULAR HGB CONC 32.1 % (32.0-36.0); PLATELET COUNT 299 TH/MM3 (150-450); RED CELL DISTRIBUTION WIDTH 13.4 % (11.6-17.2); REVIEW FLAG FINAL; WHITE BLOOD COUNT 4.7 TH/MM3 (4.0-11.0)
--- NOTE | 2017-05-09 11:46 | MP ---
cc: JEFF DELUCA III, M.D. DATE OF SURGERY: 05/09/2017 PREOPERATIVE DIAGNOSIS Left fourth and fifth metacarpal fractures and left fourth proximal phalanx fracture. PROCEDURE 1. Left fourth proximal phalanx open reduction, internal fixation. 2. Examination under anesthesia left fourth and fifth metacarpal fractures. 3. Use of image intensifier. SURGEON Jeff Deluca III, MD PROCEDURE The patient was brought to the operating room and placed supine on the operating table. After the correct site and side of surgery were verified by members of each team in the room multiple times including the patient, myself and after adequate preoperative markings, preoperative written consent was verified by everyone and after adequate preoperative time-out was performed to everyone's satisfaction and after adequate general anesthesia had been achieved the left upper extremity was prepped and draped in traditional sterile surgical fashion. Using the mini C-arm the site of the intended procedure was verified. The fourth and fifth metacarpal fractures were examined and were found to be very stable and did not have any motion in them at all. The fourth proximal phalanx was completely unstable. A 50/50 mixture of 2% plain lidocaine, 0.5% plain Marcaine was infiltrated in the skin and subcutaneous tissue dorsally. The limb was exsanguinated and a highly placed, well-padded axillary tourniquet was inflated to 200 mmHg for a total of 79 minutes. A longitudinally oriented incision was made over the proximal phalanx and carried down through skin and subcutaneous tissue. Bipolar electrocautery was used as needed. The extensor tendon was split in its midline. There was no evidence of healing of the proximal phalanx which was in four pieces. Organized clot was debrided from within the canal of the bone. Thorough irrigation was performed multiple times with normal saline. Using the [employer] modular handset, stainless steel material plate was selected. The largest fragments were reduced into anatomic position with the joint surfaces lined up and a plate was applied. Screws were tailored to length and the plate was tailored to size and shape. The three largest fragments were secured. Passive range of motion examination was performed, there was no evidence of any mal-angulation or malrotation of the finger. Bone putty was applied into the void. Purchase was nearly excellent on all of the screws. Final x-rays were obtained. The wound was thoroughly irrigated multiple times with irrigation. The extensor tendon was repaired using running 3-0 Vicryl sutures. The skin edges were then reapproximated using running 5-0 Nylon suture. The hand and arm were thoroughly cleansed and dried. Betadine, Adaptic dressing were applied on top of the wound. The hand and arm were wrapped, third and fourth fingers were wrapped together. A well-padded, well molded volar immobilizing ulnar-sided splint was made in the usual fashion keeping the third, fourth and fifth fingers immobilized. The axillary tourniquet had been released and the fingers had all become soft, pink and warm and had brisk capillary refill of less than 2-second. The patient was awakened from anesthesia and transported to the Post Anesthesia Care Unit awake and in stable condition. Sponge, needle and instrument counts were correct at the end of the case as reported by nurses in the room. MD ELVIN Mcdaniels III/MARKUS /10:51 AM /11:22 AM
[2017-05-09 12:25] VITALS: BP 129/73; PULSE 87; RESP 15; TEMP 97.9; O2SAT 98
== END | disposition home or self-care (01) ==
LOC: PHSDC 06:19
PROVIDERS: ATTEND Orthopaedic Surgery Hand Surgery
DX: S62.615A Displaced fracture of proximal phalanx of left ring finger, initial encounter for closed fracture (principal); S62.305A Unspecified fracture of fourth metacarpal bone, left hand, initial encounter for closed fracture; S62.307A Unspecified fracture of fifth metacarpal bone, left hand, initial encounter for closed fracture
CPT/HCPCS: 01830; 26735; 36415; 76000; 85027; C1713; J0744; J7120